=== PATIENT | female | born 2005 | race Caucasian/White ===

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

== ENCOUNTER 2024-09-12 14:46 | Outpatient (REF) | payer OTHER, SELFPAY ==
--- NOTE | 2024-09-12 14:30 | PAPFT_PTH ---
PATIENT: Fiorella Marin LOC: [facility] U#:[id number] AGE/SX: 19/F ROOM: RE09/12/[address]: Jenise Fowler NP : 2005 BED: DIS: 09/12/2024 SPEC #: [id number] RECD: 09/12/24 18:27 STATUS: YANELIS REHollie #: [id number] MARY: 09/12/24 14:[address]: Jenise Fowler NP DEPT: [facility] Cytology RECD BY: Kirsten Wilder ENTERED: 09/12/24 18:27 SP TYPE: PAPFT OT DR: Unknown,Unknown Tissues: 1 - CX/ENDOCX FOR PAP SMEARS Procedures: PAP THIN PREP/[facility] Screening Comments: [id number]
== END 2024-09-12 14:47 | disposition home or self-care (01) ==
LOC: LBN 14:46
PROVIDERS: Visit Provider Nurse Practitioner Women's Health
DX: Z12.4 Encounter for screening for malignant neoplasm of cervix (principal)
CPT/HCPCS: 88142